=== PATIENT | female | born 2000 | race Caucasian/White ===

== ENCOUNTER 2022-01-26 05:05 | Inpatient (IN) ==
[2022-01-26] MEDS ORDERED: METHYLERGONOVINE 0.2 MG/1 ML AMP IM PRN (05:57)
[2022-01-26] MEDS ORDERED: OXYTOCIN/LR 20 UNIT/1,000 ML BAG IV ONE ×2 (05:57→10:19)
[2022-01-26] MEDS ORDERED: ONDANSETRON 4 MG/2 ML VIAL IV PRN ×2 (05:57→10:19)
[2022-01-26] MEDS ORDERED: TRANEXAMIC ACID 1,000 MG in SODIUM CHLORIDE 0.9% 100 ML IV PRN (05:57)
[2022-01-26] MEDS ORDERED: BUTORPHANOL 2 MG/ML VIAL IV PRN (05:57)
[2022-01-26] MEDS ORDERED: CARBOPROST TROMETHAMINE 250 MCG/ML AMP IM PRN (05:57)
[2022-01-26] MEDS ORDERED: miSOPROStoL 200 MCG TABLET RECTAL PRN (05:57)
[2022-01-26] MEDS ORDERED: MEPERIDINE 50 MG/1 ML VIAL IV PRN (05:57)
[2022-01-26] MEDS ORDERED: LACTATED RINGERS 1,000 ML IV SCH ×2 (06:00→10:30)
[2022-01-26 06:44] LABS: Basophils % 0.2 % (0.0-0.8); Eosinophils % 0.2 % (0.00-10.9); Hematocrit 34.8 VOL% (35.7-47.0); Hemoglobin 12.1 GM/DL (12.0-16.0); Immature Granulocytes % 0.6 %; Immature Granulocytes Absolute 0.07 #; Lymphocytes # 2.6 10*3/uL (1.4-4.0); Mean Corpuscular HGB Conc 34.8 GM/DL (32-36); Mean Corpuscular Volume 86.4 FL (87-102); Mean Platelet Volume 11.4 FL (9.6-12.0); Monocytes # 0.6 10*3/uL (0.11-0.8); Monocytes % 4.6 % (1.7-12.7); Neutrophils % 73.4 % (38.7-73.9); Platelet Count 203 T/CUMM (130-400); Red Blood Count 4.03 MC/CUMM (3.8-5.5); White Blood Count 12.2 T/CUMM (4-12)
[2022-01-26 07:02] LABS: Albumin 2.6 G/DL (3.4-5.0); Bilirubin,Total 0.4 MG/DL (0.20-1.00); Osmolality,Calculated 274.4 MOS/KG (273-304); Total Protein 6.5 G/DL (6.4-8.2)
[2022-01-26] MEDS ORDERED: ceFAZolin 3,000 MG in SYRINGE 1 EACH IV ONE (07:39)
[2022-01-26] MEDS ORDERED: FAMOTIDINE 20 MG/2 ML VIAL IV ONE (07:39)
[2022-01-26] MEDS ORDERED: CITRIC ACID/SODIUM CITRATE 30 ML UDCUP PO ONE (07:39)
[2022-01-26] MEDS ORDERED: OXYTOCIN/LR 30 UNIT/1,000 ML BAG IV ONE (07:41)
[2022-01-26] MEDS ORDERED: OXYTOCIN 10 UNIT/ML VIAL IM ONE (07:41)
[2022-01-26] MEDS ORDERED: miSOPROStoL 200 MCG TABLET ONE (07:57)
[2022-01-26] MEDS ORDERED: CARBOPROST TROMETHAMINE 250 MCG/ML AMP IM ONE (07:58)
[2022-01-26] MEDS ORDERED: buprenorphine HCL 0.3 MG/ML VIAL ONE (09:14)
[2022-01-26] MEDS ORDERED: BUPIVACAINE SPINAL 0.75% 2 ML AMP SPINAL ONE (09:14)
[2022-01-26] MEDS ORDERED: ONDANSETRON 4 MG/2 ML VIAL ONE (09:34)
[2022-01-26] MEDS ORDERED: PHENYLEPHRINE 1 MG/10 ML SYRINGE IV ONE (09:34)
[2022-01-26 09:45] LABS: Bacteria,Urine Occasional /HPF (Few); Glucose,Urine (UA) Negative (Negative); Mucus,Urine Occasional /LPF (Occasional); Protein,Urine Negative (Negative); RBC,Urine 1 /HPF (0-4); Squamous Epithelial Cell,Urine Occasional /HPF (0-10); Urine Appearance Clear (Clear); Urine Color Yellow (Yellow); Urine Specific Gravity > 1.030 (1.001-1.035); Urine pH 6.5 (4.5-8.0)
[2022-01-26 09:46] LABS: Bilirubin,Urine Negative (Negative); Blood, Urine Negative (Negative); Ketones,Urine 40 mg/dL (Negative); Nitrite,Urine Negative (Negative); Urine Urobilinogen 0.2 eU/dL (<2.0)
[2022-01-26] MEDS ORDERED: LACTATED RINGERS 1,000 ML IV ONE (09:48)
[2022-01-26] MEDS ORDERED: MIDAZOLAM 2 MG/2 ML VIAL ONE (09:49)
[2022-01-26] MEDS ORDERED: ACETAMINOPHEN INJ 1,000 MG/100 ML VIAL IV ONE (09:53)
[2022-01-26 10:00] LABS: Cord Arterial Blood HCO3 21.5 MMOL/L
[2022-01-26 10:03] LABS: Cord Venous Blood HCO3 22.3 MMOL/L; Cord Venous Blood PCO2 35.1 MMHG
[2022-01-26] MEDS ORDERED: ACETAMINOPHEN 325 MG TABLET PO PRN (10:19)
[2022-01-26] MEDS ORDERED: MAGNESIUM HYDROXIDE SUSP 30 ML UDCUP PO PRN (10:19)
[2022-01-26] MEDS ORDERED: RHO(D) IMMUNE GLOBULIN 300 MCG SYRINGE IM ONE (10:19)
[2022-01-26] MEDS ORDERED: SIMETHICONE CHEW 80 MG TABLET PO PRN (10:19)
[2022-01-26] MEDS ORDERED: HYDROmorphone 1 MG/1 ML SYRINGE IV PRN (12:19)
[2022-01-26] MEDS ORDERED: ACETAMINOPHEN 500 MG TABLET PO SCH (16:00)
[2022-01-26 18:15] LABS: Basophils % 0.3 % (0.0-0.8); Eosinophils % 0.2 % (0.00-10.9); Hematocrit 34.3 VOL% (35.7-47.0); Hemoglobin 11.9 GM/DL (12.0-16.0); Immature Granulocytes % 0.4 %; Immature Granulocytes Absolute 0.06 #; Lymphocytes % 28.6 % (21.3-54.2); Mean Corpuscular HGB Conc 34.7 GM/DL (32-36); Mean Corpuscular Volume 87.3 FL (87-102); Mean Platelet Volume 12.1 FL (9.6-12.0); Monocytes # 1.1 10*3/uL (0.11-0.8); Monocytes % 7.7 % (1.7-12.7); Neutrophils % 62.8 % (38.7-73.9); Platelet Count 181 T/CUMM (130-400); Red Blood Count 3.93 MC/CUMM (3.8-5.5); Red Cell Distribution Width 12.9 % (9.3-17.3)
[2022-01-26 18:37] LABS: Lymphocytes 21 % (20-55); Platelet Estimate Adequate; Total Cells Counted 100
[2022-01-26] MEDS ORDERED: KETOROLAC 30 MG/1 ML VIAL IV PRN (19:25)
[2022-01-26] MEDS: oxyCODONE/ACETAMINOPHEN 5-325 MG TABLET PO PRN (19:41)
[2022-01-26] MEDS: IBUPROFEN 800 MG TABLET PO PRN (20:50)
[2022-01-26] MEDS: DOCUSATE SODIUM 100 MG CAPSULE PO SCH (20:58)
[2022-01-27 05:30] LABS: Basophils % 0.3 % (0.0-0.8); Eosinophils # 0.1 10*3/uL (0.0-0.87); Eosinophils % 0.5 % (0.00-10.9); Hematocrit 31.9 VOL% (35.7-47.0); Hemoglobin 10.8 GM/DL (12.0-16.0); Immature Granulocytes % 0.4 %; Immature Granulocytes Absolute 0.05 #; Lymphocytes # 3.2 10*3/uL (1.4-4.0); Lymphocytes % 28.9 % (21.3-54.2); Mean Corpuscular HGB Conc 33.9 GM/DL (32-36); Mean Corpuscular Volume 88.4 FL (87-102); Monocytes # 0.9 10*3/uL (0.11-0.8); Monocytes % 8.1 % (1.7-12.7); Neutrophils % 61.8 % (38.7-73.9); Platelet Count 170 T/CUMM (130-400); Red Blood Count 3.61 MC/CUMM (3.8-5.5); Red Cell Distribution Width 12.9 % (9.3-17.3); White Blood Count 11.2 T/CUMM (4-12)
[2022-01-27] MEDS: oxyCODONE/ACETAMINOPHEN 5-325 MG TABLET PO PRN (06:11)
[2022-01-27] MEDS: DOCUSATE SODIUM 100 MG CAPSULE PO SCH (09:14)
[2022-01-27] MEDS: MULTIVITAMIN (PRENATAL) TABLET PO SCH (09:14)
[2022-01-27] MEDS: METOCLOPRAMIDE 10 MG TABLET PO SCH ×2 (09:14→16:44)
[2022-01-27] MEDS: IBUPROFEN 800 MG TABLET PO PRN ×2 (10:46→18:59)
[2022-01-28 04:14] VITALS: BP 132/83
[2022-01-28] MEDS: IBUPROFEN 800 MG TABLET PO PRN (05:26)
[2022-01-28] MEDS: oxyCODONE/ACETAMINOPHEN 5-325 MG TABLET PO PRN (06:06)
[2022-01-28] MEDS: DOCUSATE SODIUM 100 MG CAPSULE PO SCH ×2 (06:12→09:59)
[2022-01-28] MEDS: MULTIVITAMIN (PRENATAL) TABLET PO SCH (10:01)
== END 2022-01-28 12:57 | disposition home or self-care (01) | DRG 540 ==
LOC: N.LD 05:05 → N.OB 12:23
PROVIDERS: ADMIT Obstetrics & Gynecology; ATTEND Obstetrics & Gynecology
PROC: LDCSECT (ICD-10-PCS; 2022-01-26 08:30)